=== PATIENT | male | born 1950 | race Two or more races ===

== ENCOUNTER 2025-03-10 18:33 | Inpatient (IN) | payer MEDICARE, MEDICAID, SELFPAY ==
[2025-03-09 12:43] VITALS: BMI 35.6
--- NOTE | 2025-03-09 13:03 | EKG_ITS ---
[facility] (Formerly [facility]) Test Date: 2025-03-09 Pat Name: CLAUDIA STONER Department: Room: - Gender: Male Senior Clinical Project Manager: DEX : 1950 Requested By: Khoi Way Order Number: [id number] Reading MD: Khoi Way Measurements Intervals [place] Rate: 73 P: 48 MO: 156 QRS: 88 QRSD: 154 T: 57 QT: 426 QTc: 470 Interpretive Statements SINUS RHYTHM WITH SINUS ARRHYTHMIA RIGHT BUNDLE BRANCH BLOCK [120+ ms QRS DURATION, UPRIGHT V1, 40+ ms S IN I/aVL/V4/V5/V6] No previous ECG available for comparison /[id number]
[2025-03-09 13:49] LABS: Basophils % (Auto) 1 % (0-2.5); Eosinophils # (Auto) 0.2 Thou/mm3 (0.0-0.5); Eosinophils % (Auto) 5 % (0-10); Hematocrit 44.1 % (41.0-53.0); Hemoglobin 15.1 g/dL (13.5-16.0); Immature Granulocytes % (Auto) 0 % (0-0); Immature Granulocytes Auto 0.01 Thou/mm3 (0.00-0.00); Lymphocytes # (Auto) 1.3 Thou/mm3 (1.0-4.8); Lymphocytes % (Auto) 29 % (10-50); Mean Corpuscular HGB Conc 34.2 g/dl (31.0-37.0); Mean Corpuscular Hemoglobin 31.5 pg (25.0-35.0); Mean Corpuscular Volume 92 fL (80-100); Monocytes # (Auto) 0.6 Thou/mm3 (0.0-0.8); Monocytes % (Auto) 14 % (0-12); Neutrophils # (Auto) 2.3 Thou/mm3 (1.8-7.7); Neutrophils % (Auto) 51 % (37-80); Nucleated Red Blood Cell % 0 /100 WBC (0); Platelet Count 213 Thou/mm3 (140-440); RDW Standard Deviation 42.6 fL (35.1-43.9); White Blood Count 4.5 Thou/mm3 (3.8-10.6)
[2025-03-09 14:14] LABS: Alanine Aminotransferase 27 U/L (10-49); Albumin, Serum 4.4 gm/dL (3.4-4.8); Albumin/Globulin Ratio 1.5 (1.2-2.2); Alkaline Phosphatase 143 U/L (46-116); Anion Gap 6 (7-16); Aspartate Amino Transferase 26 U/L (0-34); BUN/Creatinine Ratio 18 Ratio (12-20); Bilirubin,Total 0.7 mg/dL (0.3-1.2); Blood Urea Nitrogen 16 mg/dL (9-23); Calcium 9.1 mg/dL (8.3-10.6); Calcium (Corrected) 9.1 mg/dL (8.5-10.1); Carbon Dioxide 27.9 mMol/L (20.0-31.0); Chloride 106 mMol/L (98-107); Creatinine (Component) 0.9 mg/dL (0.6-1.3); Estimated Creatinine Clearance 76.2 mL/min (>60); Globulin 2.9 gm/dL (2.3-3.5); Glucose 146 mg/dL (74-106); Osmolality,Calculated 283 (275-295); Potassium 3.9 mMol/L (3.4-5.1); Sodium 140 mMol/L (136-145); Total Protein 7.3 gm/dL (5.7-8.2); eGFR > 60 See Note
[2025-03-09 14:21] LABS: Partial Thromboplastin Time 30.2 Seconds (22.0-36.0); Prothrombin Time 11.1 Seconds (9.0-12.2)
[2025-03-10] VITALS (17 sets, daily range): BP systolic 107–158; BP diastolic 65–92; PULSE 73–89; RESP 12–20; TEMP 36.1–36.9; O2SAT 92–96; BMI 35.4; BMI 35.2
--- NOTE | 2025-03-10 09:53 | CHAP ---
Prayed with patient for upcoming procedure.
--- NOTE | 2025-03-10 13:17 | XR_ITS ---
Examination: Knee, left , 3 views Technique: Knee AP, lateral, oblique 3 views Date and time of exam: March 10, 2025 at 1405 hours INDICATIONS: Status post left knee arthroplasty FINDINGS: Total left knee arthroplasty. No fracture No loosening of the prosthetic components Mild widening of the medial joint space on the oblique view IMPRESSION: Total left knee arthroplasty as above
--- NOTE | 2025-03-10 13:18 | PD.SUROPNT ---
Date of Procedure 03/10/25 Pre Op Diagnosis Severe DJD left knee joint Post Op Diagnosis Same Procedure Left total knee replacement Melvina persona implant. Femur size 7 standard Tibial baseplate size E Polyethylene size 10 mm medial stabilizer Patella size 29 mm Findings Patient has significant osteoarthritic changes. The medial femoral condyle was completely denuded of cartilage. The medial tibial plateau also has some erosions of cartilage. 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 There are significant osteophytes especially on and the patella was present. 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 The left knee block was also given once satisfactory anesthesia was achieved a tourniquet was placed on left upper thigh. Intravenous antibiotics was given at the time of anesthesia. The patient was thoroughly prepped and draped. After using Esmarch the tourniquet pressure was raised to 350 mmHg. A skin incision was made 2 inches proximal to the upper pole of patella going as far down as up to the medial aspect of the tibial tuberosity. The skin was raised as a flap on the site. The bleeding vessels were electrocoagulated as and when encountered. The quadriceps tendon, medial border of the patella and the patellar tendon along the medial aspect of the tibial tuberosity was incised and reflected. The patellar tendon was reflected as much as needed to yudelka the patella. The soft tissue from the upper medial border of the tibia was reflected to correct her genu varum deformity. The knee joint was flexed. The anterior cruciate ligament, medial and lateral meniscus were excised. Next para drill hole was made to the inferior surface of the femur. Following that a swab was placed. A 4?? of abduction was already put into it. Following that a cutting block for the inferior cut of the femur was placed and nicely secured with the pins. The swat was removed. The inferior cut of the femur was made and after that the cutting block was removed. Following that a sizer was placed. A decision was made to use size [7] femur implant. 2 drill holes each in 3?? of external rotation were made. The sizer was removed. Size [7] cutting block was placed. Following that anterior, posterior, anterior chamfer and posterior chamfer cuts were made. The cutting block was removed. The knee joint was extended and a 10 mm trial plastic was removed and the intended level of the tibial cut was marked. The knee joint was flexed. With the help of double-pronged the tibia was displaced anteriorly. An extramedullary jig for the cutting block placement of the tibia was placed. The mechanical axis of the zig was parallel to the mechanical axis of the tibia. Following that the tibial cutting block was placed at the desired level and was secured nicely with the help of pins. Following that the tibial cut was made. In this case was posterior cruciate ligament was saved. The cutting block was removed. The spacer was placed and a decision was made to use size [10] polyethylene. The sizing of the tibial baseplate was done and the decision was made to use size [E] tibial baseplate. Following that size [7] trial femur implant was placed in lateralized position and size [E] tibial tibial baseplate along with size [10] plastic was placed in knee joint was flexed and extended quite a few times and tibial baseplate was allowed to sit wherever it wanted to. The markings were made for the tibial baseplate. 2 drill holes were made for the inferior surface of the femur trial implant. The trial implant was removed and tibial baseplate was placed again with the help of pins. The collar was placed and superior hole was drilled. Following that a fin cut was made. The patella was reamed with [29] mm diameter reamer. [12] mm thickness was left. A collar was placed and 3 drill holes were made. All the trial implant was placed and patellar tracking was checked and found to be good. Lateral release was done at this point. The wound was irrigated with antibiotic solution every 4-5 minutes. Now the power lavage antibiotic solution was used. The knee joint was flexed. The bone were made dry. The cement was mixed. With the help of cement the tibial baseplate was mounted. The excess cement was removed. The femur implant was placed and trial plastic was placed and knee joint was extended. Patella was also mounted with the help of cementing. Excess cement was removed. Osteophytes from the patella was removed at this time. Once the cement was set the tourniquet pressure was released. The bleeding vessels were electrocoagulated. The trial plastic was removed and 10 mm ultra high molecular weight polyethylene was placed. Closure The quadriceps tendon was closed with 1 strata fix in continuous fashion. The subcu tissue was closed with 2-0's strata fix in continuous fashion. The skin was closed with subcuticular absorbable suture. Following that Prineo tape was applied. A sterile dressing was applied. Patient tolerated procedure very well. Estimated blood loss [50] mL. Prognosis in this case is good. This was taken to the recovery room in good condition. Anesthesia GETA and other Pathology / specimen None Estimated Blood Loss 50 Surgeon Khoi Salinas MD Surgical Staff Operation Date: 03/10/25 11:45 Case Staff Anesthesiologist: Albino Perrin RNfacility rehab director: Lurdes Mckeon
--- NOTE | 2025-03-10 13:29 | SUR.OPER ---
Prineo Dressing Applied at 90 degree flexion
--- NOTE | 2025-03-10 13:42 | SUR.PHASEI ---
1342: Pt. AAOx4, vitals stable, breathing unlabored, no complaint of pain or nausea, dressing to left knee CDI, no active bleed noted, bilateral dorsalis pedis pulses strong and regular, cap refill to bilateral feet less than 3 seconds, pt. able to move bilateral legs, report received from MD Perrin and Kristine MORRISSEY.
[2025-03-10] MEDS: HYDROmorphone INJ 2 MG/ML VIAL 0.5 MG IV (14:42)
--- NOTE | 2025-03-10 16:23 | ESHP_ITS ---
RE: CLAUDIA STONER : 1950 DATE OF ADMISSION: 03/10/2025 The patient came to my [place] office on 03/09/2025 for detailed preop history and physical examination. Surgery is going to be done in [facility]. HISTORY OF PRESENT ILLNESS: The patient presented to me with a history of pain in the left knee joint. This is going on for a long period of time. The patient graded the intensity of pain to be 8-9/10. The patient is unable to sleep. Pain keeps him awake at night. Quality of life and activities of daily living are affected. The patient underwent left knee arthroscopy in 11/2024. It revealed grade 4 chondromalacia in the medial and patellofemoral compartment. However, this procedure did not help him. PAST MEDICAL HISTORY: The patient has a history of high blood pressure and high cholesterol. PAST SURGICAL HISTORY: Cholecystectomy and also left knee arthroscopy done in the past. DRUG HISTORY: The patient is on, 1. Amlodipine. 2. Atorvastatin. 3. Losartan. ALLERGIES: Nil known. FAMILY HISTORY AND SOCIAL HISTORY: The patient denies smoking, drinking and is retired. PHYSICAL EXAMINATION: General: Normal built person. Vital Signs: Pulse 82 per minute. Blood pressure 130/76. Neck: Soft, supple, no mass felt. Trachea is centrally placed. Cardiovascular: First and second heart sounds normal. No murmur heard. Respiratory: Bilateral vesicular breath sounds. Chest: Clear. Abdomen: Soft, no mass felt. Bowel sounds present. Rectal: Not indicated in this case. The patient is advised to see the family physician for regular examination. Extremities: Left knee examination revealed mild swelling. There is 2+ tenderness. 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 Active range of motion 0 to 115 degrees of flexion. Patellofemoral crepitus is present. The patient walks with a limp. Neurovascular: Intact. DIAGNOSTIC DATA: X-ray of the left knee joint revealed significant osteoarthritic changes. Since the patient is symptomatic and it is affecting quality of life and activities of daily living, therefore, left total knee replacement was discussed and advised. With the help of pictures, diagram, and knee model cause was explained to him and his family in detail. Risk with anesthesia was explained and that includes, but not limited to reaction to anesthetic agents, cardiac arrest and rarely it may be fatal. Risks with operation include infection and if that happens, the patient will need further surgical procedure. Other risks include deep venous thrombosis, pulmonary emboli, sometimes rare complication happens and if that happens, that has to be taken care of. No guarantees given regarding the outcome of the procedure and no relief of symptoms. Indeed, sometimes there is a stress fracture just proximal and/or distal to the prosthesis. The patient is fully aware of that. Surgery is booked in [place] 03/10/2025. Appropriate lab work was done. DT: 13:35:06 TT: 16:21:00 Ref: [id number] - TID: [id number]
[2025-03-10] MEDS: SODIUM CHLORIDE 0.9% 1000 ML 1,000 ML 50 ML IV (17:33)
--- NOTE | 2025-03-10 18:20 | SUR.PHASEII ---
1820: Pt. AAOx4, vitals stable, breathing unlabored, no complaint of pain or nausea, dressing to left knee CDI, no active bleed noted, bilateral dorsalis pedis pulses strong and regular, cap refill to bilateral feet less than 3 seconds, pt. able to move bilateral legs, pt. tolerated dinner tray well, gave report to floor nurse prior to transfer to room, family made aware of transfer. Pt. transferred with all personal belongings.
--- NOTE | 2025-03-10 18:49 | PC.NURSE ---
Patient arrived in bed awake, alert, with no s/s of distress.
[2025-03-10] MEDS: ceFAZolin/D5W 1 GM IVPB 1 GM/50 ML BAG IV (19:36)
[2025-03-11] VITALS: BP 136/81; PULSE 86; RESP 16; TEMP 36.6; O2SAT 96
[2025-03-11] MEDS: ceFAZolin/D5W 1 GM IVPB 1 GM/50 ML BAG IV (03:30)
[2025-03-11 04:00] VITALS: BP 138/77; PULSE 76; RESP 19; TEMP 37.2; O2SAT 97
[2025-03-11 06:29] LABS: Basophils % (Auto) 0 % (0-2.5); Eosinophils % (Auto) 0 % (0-10); Hematocrit 39.8 % (41.0-53.0); Hemoglobin 13.7 g/dL (13.5-16.0); Immature Granulocytes % (Auto) 0 % (0-0); Immature Granulocytes Auto 0.03 Thou/mm3 (0.00-0.00); Lymphocytes # (Auto) 0.5 Thou/mm3 (1.0-4.8); Lymphocytes % (Auto) 5 % (10-50); Mean Corpuscular HGB Conc 34.4 g/dl (31.0-37.0); Mean Corpuscular Hemoglobin 32.5 pg (25.0-35.0); Mean Corpuscular Volume 95 fL (80-100); Monocytes # (Auto) 1.1 Thou/mm3 (0.0-0.8); Monocytes % (Auto) 10 % (0-12); Neutrophils # (Auto) 8.5 Thou/mm3 (1.8-7.7); Neutrophils % (Auto) 84 % (37-80); Nucleated Red Blood Cell % 0 /100 WBC (0); Platelet Count 194 Thou/mm3 (140-440); RDW Standard Deviation 43.1 fL (35.1-43.9); Red Blood Count 4.21 Miln/mm3 (4.50-5.90); White Blood Count 10.2 Thou/mm3 (3.8-10.6)
[2025-03-11 08:00] VITALS: BP 150/77; PULSE 79; RESP 18; TEMP 36.6; O2SAT 96
[2025-03-11] MEDS: MORPHINE SULF INJ 10 MG/ML VIAL 4 MG IV (09:27)
[2025-03-11 12:00] VITALS: BP 142/71; PULSE 80; RESP 17; TEMP 36.8; O2SAT 94
--- NOTE | 2025-03-11 12:11 | PC.SS ---
Follow up note: Waiting for dressing changes by Dr. Sousa. Pt will return home upon d.c.
[2025-03-11 14:32] VITALS: BMI 15.0
[2025-03-11 15:52] VITALS: BP 155/68; PULSE 89; RESP 18; TEMP 36.7; O2SAT 93
--- NOTE | 2025-03-11 16:33 | PC.NURSE ---
Called Dr Sousa of pts discharge plan. d/t patient completing pt therapy. Per MD continue with dc and dc orders have been given to pt as well as medications prior to sx. Per pt aware of f/u appointment, post op medications, and post op care.
--- NOTE | 2025-03-12 14:57 | ESPR_ITS ---
Documentation for date of: 03/12/25 POST ANESTHESIA NOTE: Patient had GETA and L femoral block for L TKA on 03/10/25. I just called his number via seasonal delivery driver, answered by female voice, who denied patient having any problems from anesthesia. Albino Perrin MD Anesthesia Progress Note Progress Note Most recent Vital Signs: Last Vital Signs Temp 98.0 F 03/11/25 15:52 Pulse 89 03/11/25 15:52 Resp 18 03/11/25 15:52 BP 155/68 H 03/11/25 15:52 Pulse Ox 93 L 03/11/25 15:52 O2 Del Method Room Air 03/11/25 15:52 O2 Flow Rate 3 03/10/25 18:10
== END 2025-03-11 18:00 | disposition home or self-care (01) | DRG 470 ==
LOC: S3NX 18:44
PROVIDERS: Anesthesiology; Admitting Provider Orthopaedic Surgery; Referring Provider Orthopaedic Surgery; Visit Provider Orthopaedic Surgery
PROC: 0SRD0J9 Replacement of Left Knee Joint with Synthetic Substitute, Cemented, Open Approach (ICD-10-PCS; principal; 2025-03-10 11:30)
DX: M17.12 Unilateral primary osteoarthritis, left knee (principal); M21.169 Varus deformity, not elsewhere classified, unspecified knee; Z79.899 Other long term (current) drug therapy
CPT/HCPCS: 36415; 73562; 80053; 85025; 85610; 85730; 86850; 86900; 86901; 86923; 87081; 93005; 97162; A4217; C1713; C1776; J0131; J0689; J0690; J1100; J2250; J2270; J2405; J2704; J2795; J3010; J3490; J7030; L1832; J1805